=== PATIENT | female | born 1955 | race Hispanic/Latino ===

== ENCOUNTER 2023-11-22 16:38 | Emergency (ER) | payer MEDICARE ==
[~2023-11-22] VITALS: Ht 152.4 cm; Wt 66.7 kg
[2023-11-22 16:45] VITALS: PULSE 79; RESP 16; TEMP 98.7; O2SAT 98
[2023-11-22 18:08] LABS: BASOPHILS % 0.7 % (0.0-1.0); EOSINOPHILS % 0.2 % (0.0-6.0); HEMATOCRIT 42.1 % (34.2-44.1); LYMPHOCYTES # (AUTO) 1.1 (1.0-3.2); LYMPHOCYTES % 26.1 % (18.0-39.1); MEAN CORPUSCULAR HEMOGLOBIN 29.2 pg (28-32); MEAN CORPUSCULAR HGB CONC 33.3 g/dL (31-35); MEAN CORPUSCULAR VOLUME 87.9 fL (81-99); MONOCYTES # (AUTO) 0.4 (0.2-0.8); MONOCYTES % 9.8 % (4.4-11.3); NEUTROPHILS # (AUTO) 2.8 (2.1-6.9); PLATELET COUNT 204 x10e3/uL (140-360); RED BLOOD COUNT 4.79 x10e6/uL (3.6-5.1); RED CELL DISTRIBUTION WIDTH 13.2 % (11.7-14.4); WHITE BLOOD COUNT 4.37 x10e3/uL (4.8-10.8)
[2023-11-22] MEDS ORDERED: AMOX TR-K CLV1 EAC2 PO (18:12)
[2023-11-22 18:21] LABS: ALBUMIN/GLOBULIN RATIO 0.9 (0.8-2.0); ANION GAP 18.7 mmol/L (8-16); BILIRUBIN,TOTAL 1.2 mg/dL (0.2-1.2); CALCIUM 9.1 mg/dL (8.4-10.2); CREATININE, SERUM 0.74 mg/dL (0.57-1.11); POTASSIUM 4.7 mmol/L (3.5-5.1); TOTAL PROTEIN 8.7 g/dL (6.5-8.1)
[2023-11-22 18:22] LABS: INR 1.14; PARTIAL THROMBOPLASTIN TIME 33.4 seconds (23.8-35.5); PROTHROMBIN TIME 15.4 seconds (11.9-14.5)
== END 2023-11-22 18:27 | disposition home or self-care (01) ==
LOC: ER 17:00
DX: I83.12 Varicose veins of left lower extremity with inflammation (principal); I83.11 Varicose veins of right lower extremity with inflammation; I10 Essential (primary) hypertension
CPT/HCPCS: 36415; 80053; 85025; 85610; 85730; 93970; 99284

== ENCOUNTER 2024-07-26 14:39 | Emergency (ER) | payer SELFPAY ==
[~2024-07-26] VITALS: Ht 152.4 cm; Wt 66.7 kg
[~2024-07-26 14:39] MED LIST: AMOX TR-K CLV1 EAC2 PO
[2024-07-26 14:45] VITALS: PULSE 80; RESP 17; TEMP 98.7; O2SAT 99
[2024-07-26] MEDS: DEXAMETHASONE SOD PHOS 10 MG/1 ML VIAL IM ONE (15:57)
[2024-07-26] MEDS ORDERED: PREDNISONE20 MG PO (16:28)
== END 2024-07-26 17:05 | disposition home or self-care (01) ==
LOC: ER 16:25
DX: M79.605 Pain in left leg (principal); M79.604 Pain in right leg; M79.642 Pain in left hand; M79.641 Pain in right hand; M13.0 Polyarthritis, unspecified; I10 Essential (primary) hypertension; E03.9 Hypothyroidism, unspecified; Z86.718 Personal history of other venous thrombosis and embolism
CPT/HCPCS: 99283; J1100